=== PATIENT | female | born 1965 | race American Indian/Alaskan Native ===

== ENCOUNTER 2022-01-14 13:26 | Emergency (ER) | payer OTHER ==
[2022-01-14 13:58] VITALS: BP 120/67
--- NOTE | 2022-01-16 08:51 | Electrocardiograph Report ---
[facility] Test Date: 2022-01-14 Test Time: 13:49:33 Pat Name: STEVAN LOBO Department: Room: Gender: F [employer]ating Machine Operator: AILYN : 1965 Requested By: PATY LAI Order Number: [id number] Reading MD: Steve Schmidt Measurements Intervals [place] Rate: 60 P: 74 TX: 173 QRS: 70 QRSD: 70 T: 267 QT: 467 QTc: 465 Interpretive Statements Sinus rhythm Right atrial enlargement Probable LVH with secondary repol abnrm No previous ECG available for comparison Electronically Signed On 01-16-2022 8:50:44 EDT by Steve Schmidt
== END 2022-01-14 13:50 | disposition left against medical advice (07) ==
LOC: ED 13:26
DX: R07.9 Chest pain, unspecified (principal); Z53.21 Procedure and treatment not carried out due to patient leaving prior to being seen by health care provider
CPT/HCPCS: 93005

== ENCOUNTER 2022-01-28 17:44 | Emergency (ER) | payer SELFPAY ==
[2022-01-28 18:10] VITALS: BP 93/58
--- NOTE | 2022-01-29 09:42 | Electrocardiograph Report ---
[facility] Test Date: 2022-01-28 Test Time: 18:12:19 Pat Name: STEVAN LOBO Department: Room: Gender: F Director Building: AILYN : 1965 Requested By: TYRONE MCCAULEY Order Number: [id number] Reading MD: Lew Pacheco Measurements Intervals [place] Rate: 67 P: 62 NV: 159 QRS: 51 QRSD: 78 T: 255 QT: 437 QTc: 463 Interpretive Statements Sinus rhythm LAE, consider biatrial enlargement LVH with secondary repolarization abnormality Anterior ST elevation, probably due to LVH Compared to ECG 01/14/2022 13:49:33 ST (T wave) deviation now present Electronically Signed On 01-29-2022 9:41:28 EDT by Lew Pacheco
== END 2022-01-29 09:35 | disposition left against medical advice (07) ==
LOC: ED 17:44
DX: R07.9 Chest pain, unspecified (principal); M79.89 Other specified soft tissue disorders; R53.1 Weakness; Z53.21 Procedure and treatment not carried out due to patient leaving prior to being seen by health care provider
CPT/HCPCS: 93005